=== PATIENT | male | born 1995 | race Caucasian/White ===

== ENCOUNTER 2019-09-11 10:35 | Emergency (ER) | payer OTHER ==
[~2019-09-11] VITALS: Ht 170.2 cm; Wt 89.9 kg
[2019-09-11] MEDS ORDERED: PSEU30TA85 PO (10:43)
[2019-09-11 11:53] LABS: INFLUENZA A AMPLIFICATION NEGATIVE (NEGATIVE); INFLUENZA B AMPLIFICATION NEGATIVE (NEGATIVE)
[2019-09-11] MEDS ORDERED: IBUPROFEN 800 MG TAB PO ONE (12:15)
[2019-09-11 12:41] LABS: BASO % 0.3 % (0.0-1.0); EOS # 0.1 10^3/uL (0.0-0.5); EOS % 0.5 % (0.0-3.0); HEMATOCRIT 43.6 % (42.0-52.0); HEMOGLOBIN 14.3 g/dl (13.5-17.5); LYMPH % 16.9 % (24.0-44.0); MEAN CORPUSCULAR HEMOGLOBIN 28.7 pg (27.0-33.0); MEAN CORPUSCULAR HGB CONC 32.8 g/dl (32.0-36.5); MEAN CORPUSCULAR VOLUME 87.6 fl (80.0-96.0); MONO # 1.4 10^3/uL (0.0-0.8); MONO % 12.2 % (0.0-5.0); NEUTROPHILS # 8.1 10^3/uL (1.5-8.5); NEUTROPHILS % 69.9 % (36.0-66.0); PLATELET COUNT, AUTOMATED 203 10^3/uL (150-450); RED BLOOD COUNT 4.98 10^6/uL (4.30-6.10); WHITE BLOOD COUNT 11.5 10^3/uL (4.0-10.0)
[2019-09-11 13:00] LABS: ALBUMIN 4.1 GM/DL (3.2-5.2); ALT/SGPT 27 U/L (12-78); BILIRUBIN,DIRECT 0.2 MG/DL (0.0-0.2); BILIRUBIN,TOTAL 0.5 MG/DL (0.2-1.0); BLOOD UREA NITROGEN 10 MG/DL (7-18); CALCIUM LEVEL 8.7 MG/DL (8.5-10.1); CARBON DIOXIDE LEVEL 28 MEQ/L (21-32); CHLORIDE LEVEL 106 MEQ/L (98-107); CREATININE FOR GFR 0.98 MG/DL (0.70-1.30); GLOMERULAR FILTRATION RATE > 60.0 (>60); GLUCOSE, FASTING 89 MG/DL (70-100); POTASSIUM SERUM 3.9 MEQ/L (3.5-5.1); SODIUM LEVEL 139 MEQ/L (136-145); TOTAL PROTEIN 7.2 GM/DL (6.4-8.2)
--- NOTE | 2019-09-11 13:08 | REP ---
Chest x-ray: Two views. History: Fever and cough . Comparison study: No comparison study . Findings: The lungs are well inflated and free of infiltrate. The pleural angles are sharp. The heart size is normal. Pulmonary vasculature is not increased. No significant bony abnormality is seen. Impression: Negative chest x-ray. Electronically Signed by Bassam Alvarez MD 09/11/2019 01:00 P
[2019-09-11 13:10] LABS: MONO REFLEX EBV COMP NEGATIVE (NEGATIVE)
--- NOTE | 2019-09-11 14:30 | REP ---
Maxillofacial CT study without contrast: History: Facial pain. Rule out sinusitis. Findings: Digital preliminary in classroom tutor radiograph and the subsequently performed CT acquisition demonstrate a metallic wire like structure over the bridge of the nose. No nasal or inferior maxillary spine fracture is seen. Orbital margins are intact. Zygomatic arches are intact. No facial or skull base fracture is seen. The maxillary sinuses are clear. Ostiomeatal complexes are widely patent bilaterally. Bony nasal septum deviates slightly to the left with a moderate size septal beak visible at mid septal level. No nasal polyp is seen. Nasal ethmoid recesses are clear. Ethmoid air cells are clear. Frontal sinuses are small but clear. Sphenoid aeration is normal. Mastoids are normally aerated and symmetric. Middle ear cavities are aerated. No intracranial or intraorbital soft tissue abnormality is seen. Impression: Leftward deviation of the nasal septum with a septal beak. Otherwise negative paranasal sinus CT study. Electronically Signed by Bassam Alvarez MD 09/11/2019 02:39 P
[2019-09-11 14:56] VITALS: BP 120/70
[2019-09-13 00:06] LABS: EBV AB TO NUCLEAR ANTIGEN <18.0 U/mL (0.0-17.9); EBV VIRAL CAPSID AG IgM <36.0 U/mL (0.0-35.9)
== END 2019-09-11 15:23 | disposition home or self-care (01) ==
LOC: M ED 10:35
DX: J32.9 Chronic sinusitis, unspecified (principal)

== ENCOUNTER → 2020-07-23 | Outpatient (CLI) | payer SELFPAY ==
[~2020-07-23] MED LIST: PSEU30TA85 PO
== END ==
LOC: M LABSMTC 09:47
PROVIDERS: ATTEND Pediatrics
DX: Z20.828 Contact with and (suspected) exposure to other viral communicable diseases (principal)